=== PATIENT | female | born 1955 | race Caucasian/White ===

== ENCOUNTER 2022-09-07 10:23 | Day surgery (SDC) | payer OTHER ==
[~2022-09-07] VITALS: Ht 167.6 cm; Wt 219.4 kg
[~2022-09-07 10:23] MED LIST: ACET325 PO; BUPR100; CLON.3 PO; CONEST.3; CYCL10 PO; ESCI10; ESOM20; HYDACE10B PO; HYDACE5 PO; IBUP400 PO; IBUP800; MELO7.5 PO; ONDA4ODT MM; OXYACE5T PO; PROM25 PO; [UNRECOGNIZED DRUG - REMARK]
[2022-09-07] MEDS ORDERED: METF500 PO (11:29)
[2022-09-07] MEDS ORDERED: GLIP2.5ER PO (11:30)
[2022-09-07] MEDS ORDERED: EUTHYROX175 MCG PO (11:31)
[2022-09-07] MEDS ORDERED: BUPR75 PO (11:31)
[2022-09-07] MEDS ORDERED: ATOR20 PO (11:31)
[2022-09-07] MEDS ORDERED: EXEN5PENI INJ (11:32)
[2022-09-07] MEDS ORDERED: MELA3 PO (11:33)
--- NOTE | 2022-09-07 12:43 | NUR ---
09/07/22 1243 Ananth Anthony 0.15ML OF EPI 1MG/ML ADDED TO 30ML ROPIVICAINE 0.5% TO CREATE A SOLUTION OF ROPIVICAINE 0.5% WITH EPI 1:200,000.
== END 2022-09-07 13:50 | disposition home or self-care (01) ==
LOC: ORSCSDS 10:23
PROVIDERS: Podiatrist Foot & Ankle Surgery
PROC: 0QBN0ZZ Excision of Right Metatarsal, Open Approach (ICD-10-PCS; principal; 2022-09-07 12:00)
PROC: 0QBQ0ZZ Excision of Right Toe Phalanx, Open Approach (ICD-10-PCS; principal; 2022-09-07 12:00)
DX: M20.5X1 Other deformities of toe(s) (acquired), right foot (principal); E11.9 Type 2 diabetes mellitus without complications; E03.9 Hypothyroidism, unspecified; F41.9 Anxiety disorder, unspecified; E66.9 Obesity, unspecified; Z68.35 Body mass index [BMI] 35.0-35.9, adult; Z87.891 Personal history of nicotine dependence; Z79.899 Other long term (current) drug therapy
CPT/HCPCS: 82947; J0171; J0690; J1100; J2001; J2250; J2405; J2704; J2795; J3010; J7120

== ENCOUNTER 2023-10-20 19:20 | Emergency (ER) | payer OTHER ==
[~2023-10-20] VITALS: Ht 167.6 cm; Wt 94.3 kg
[~2023-10-20 19:20] MED LIST changes: +ATOR20 PO; +BUPR75 PO; +EUTHYROX175 MCG PO; +EXEN5PENI INJ; +GLIP2.5ER PO; +MELA3 PO; +METF500 PO
[2023-10-20] MEDS ORDERED: GABA100 PO (19:35)
[2023-10-20] MEDS ORDERED: ZOLOFT10013 PO (19:35)
[2023-10-20] MEDS ORDERED: OZEMPIC0.25 MG/02 SQ (19:35)
[2023-10-20] MEDS ORDERED: OMEP20ER (19:36)
[2023-10-20] MEDS ORDERED: Tetanus and Diphtheria Toxoid 0.5 ML INJ IM ONE (20:20)
[2023-10-20] MEDS ORDERED: [UNRECOGNIZED DRUG - OTHER] INFIL ONE (20:30)
[2023-10-20] MEDS ORDERED: Lidocaine 2%-Epineph 1:100000 20 ML MDV INJ ONE (21:20)
[2023-10-20 21:48] LABS: BASOPHILS ABSOLUTE AUTO 0.05 K/mm3 (0.00-0.23); BASOPHILS PERCENT AUTO 0 % (0-2); EOSINOPHILS ABSOLUTE AUTO 0.04 K/mm3 (0.00-0.68); EOSINOPHILS PERCENT AUTO 0 % (0-6); Hematocrit 38.7 % (33.0-51.0); Hemoglobin 12.6 g/dL (11.5-16.0); IMMATURE GRAN ABSOLUTE AUTO 0.06 K/mm3 (0.00-0.10); IMMATURE GRAN PERCENT AUTO 1 % (0-1); LYMPHOCYTES PERCENT AUTO 20 % (21-46); MONOCYTES ABSOLUTE AUTO 0.58 K/mm3 (0.16-1.47); MONOCYTES PERCENT AUTO 5 % (4-13); Mean Corpuscular HGB 27.1 pg (26.0-34.0); Mean Corpuscular HGB Conc 32.6 g/dL (31.5-36.5); Mean Corpuscular Volume 83 fL (80-100); Mean Platelet Volume 9.6 fL (9.1-12.4); NEUTROPHILS ABSOLUTE AUTO 8.42 K/mm3 (1.96-9.15); NEUTROPHILS PERCENT AUTO 74 % (41-73); Platelet Count 260 K/mm3 (150-400); RDW Coefficient Variation 14.5 % (11.7-14.2); RDW Standard Deviation 43.7 fL (35.1-46.3); Red Blood Cell Count 4.65 M/mm3 (3.80-5.20); White Blood Cell Count 11.45 K/mm3 (4.00-11.30)
[2023-10-20 22:06] LABS: Albumin, Blood 3.6 g/dL (3.4-5.0); Albumin/Globulin Ratio 0.9 (0.8-1.8); Bilirubin, Total 0.2 mg/dL (0.1-1.0); Bun/Creatinine Ratio 18.7 (12.0-20.0); Creatinine, Blood 0.54 mg/dL (0.40-1.00); Total Protein, Blood 7.6 g/dL (6.4-8.2)
[2023-10-20] MEDS ORDERED: Percocet 5-3251 EACH PO (22:27)
[2023-10-20 22:45] LABS: International Normalized Ratio 0.96; Prothrombin Time Results 10.1 Sec (9.7-11.5)
[2023-10-20 23:00] VITALS: BP 105/93
== END 2023-10-20 23:00 | disposition home or self-care (01) ==
LOC: ER 19:20
PROVIDERS: Emergency Medicine
DX: S12.190A Other displaced fracture of second cervical vertebra, initial encounter for closed fracture (principal); S01.81XA Laceration without foreign body of other part of head, initial encounter; F10.129 Alcohol abuse with intoxication, unspecified; W01.190A Fall on same level from slipping, tripping and stumbling with subsequent striking against furniture, initial encounter; E03.9 Hypothyroidism, unspecified; F32.A Depression, unspecified; Z88.8 Allergy status to other drugs, medicaments and biological substances; Z79.84 Long term (current) use of oral hypoglycemic drugs; Z79.890 Hormone replacement therapy; Z79.899 Other long term (current) drug therapy
CPT/HCPCS: 12013; 70450; 71101; 72125; 80053; 85025; 85610; 90714; 99284-25